=== PATIENT | male | born 1990 | race Caucasian/White ===

== ENCOUNTER 2025-03-08 18:52 | Emergency (ER) | payer OTHER, SELFPAY ==
[2025-03-08 18:58] VITALS: BP 105/54; PULSE 60; RESP 20; TEMP 35.4; O2SAT 98
--- NOTE | 2025-03-08 19:15 | W.ED.GENAD ---
Discharge Plan Disposition Patient Disposition: Home Discharge Details Clinical Impression: Acute thoracic back pain Primary Care Provider: [facility] ED Provider: Ashley Smith Home Meds and New Rx's Prescriptions: New methocarbamol 750 mg tablet 750 mg PO Q8H Qty: 10 0RF No Action fluoxetine 60 mg tablet 60 mg PO DAILY Discharge Instructions Instructions: Upper Back Pain (DC) Additional Instructions: Please call your primary care provider first thing Monday morning to schedule follow-up appointment. I recommend he continue using ibuprofen 600 mg every 8 hours, acetaminophen 650 mg every 6 hours, and lidocaine patches available [id number]. When you are not using lidocaine patches, I recommend heat and ice alternating every 15 to 20 minutes.. Use gentle stretching exercises. You may use Robaxin prescribed as needed, please note that this may make you sleepy, so do not operate any heavy machinery, drive, swim, or climb ladders while taking this. Return to emergency care if develop new extremity weakness/numbness, change in bowel or bladder function, difficulty breathing, or if you are very worried and need to be rechecked immediately Stand Alone Forms: Work Release Referrals: [facility] [Primary Care Provider, Medicine] Discharge Data Discharge Date/Time-TO BE ENTERED AT DEPARTURE: 03/08/25 21:06 HPI General Date/Time Provider Initiated Documentation: 03/08/25 18:59. HPI Narrative: Luis is a 34 year old male who presents to the emergency department for sudden onset of thoracic back pain. Sudden onset of back pain while bending over to lift a tube of blood that dropped on the floor. Denies associated extremity numbness/weakness, loss of bowel/bladder control, abdominal pain, chest pain, difficulty breathing/shortness of breath other than discomfort with deep inspiration attributed to back pain. Has not taken any pain relievers prior to arrival to ED. History of similar episodes of thoracic and lumbar back pain due to previous occupation as a [employer]. Has successfully used prednisone and Tylenol in the past, but says the prednisone disrupts sleep so he would like to avoid that at this time. Has history of PTSD, no history of gael's. Denies heart disease, lung disease, kidney disease, bleeding disorders, regular EtOH use, history of GI bleeds. He has a chiropractor he can follow-up with. PCP is at [facility]. Related Data Home Medications ?Medication ?Instructions ?Recorded ?Confirmed fluoxetine 60 mg tablet 60 mg PO DAILY 03/08/25 03/08/25 methocarbamol 750 mg tablet 750 mg PO Q8H #10 tabs 03/08/25 Previous Rx's ?Medication ?Instructions ?Recorded methocarbamol 750 mg tablet 750 mg PO Q8H #10 tabs 03/08/25 Allergies Allergy/AdvReac Type Severity Reaction Status Date / Time propranolol Allergy Intermediate Other (See Verified 03/08/25 19:03 Comment) General Stated Complaint: Nk/Back Pain ALONDRA: 4 Exam Narrative Exam Narrative: General Appearance: Normal. Patient is alert and oriented, no acute distress Vital signs: Within normal limits. Respiratory: Normal breath sounds, easy work of breathing, lung sounds clear bilaterally Cardiovascular: Normal heart sounds, regular rate and rhythm Gastrointestinal: No abdominal tenderness, abdomen is soft, nondistended Back, Musculoskeletal: Tenderness in thoracic spine along T7-T9, no step-offs or deformities, no point tenderness. No paraspinal tenderness. Extremities: 5/5 upper and lower extremity strength, sensation grossly intact. Skin: Warm and dry, no rash. Psychiatric: Normal. Course Vital Signs Vital signs: Vital Signs Pulse 60 03/08/25 18:58 Respiratory Rate 03/08/25 18:58 Blood Pressure 105/54 L 03/08/25 18:58 Pulse 60 03/08/25 18:58 Respiratory Rate 20 03/08/25 18:58 Blood Pressure 105/54 L 03/08/25 18:58 Blood Pressure Position Sitting 03/08/25 18:58 Oxygen Delivery Method Room Air 03/08/25 18:58 Oxygen Flow Rate 0 03/08/25 18:58 Medical Decision Making Initial Assessment: Thoracic back pain after bending over. No history of trauma, osteoporosis, or significant health issues. History and presentation most consistent with musculoskeletal back pain, no red flags concerning for spinal cord compression/neurovascular compromise, intrathoracic etiology, or significant trauma concerning for fracture ED Course: Lidocaine patch, Toradol, Tylenol administered. Pt reports good improvement of symptoms, can now take deep breaths without difficulty. Final Assessment: Thoracic back pain managed with lidocaine patch, Toradol, Tylenol. Muscle relaxers for home use. Prednisone withheld due to sleep impact. Clinical Impression: Thoracic back pain Disposition: Follow up with primary care physician early next week. Consult chiropractor as needed. Reviewed discharge instructions, including symptomatic management and red flags indicate need for return to emergency care. A limited number for robaxin tablets given for muscle relaxer. Pt voices agreement with plan of care Patient Education: Multimodal pain control approach discussed. Advised follow-up with primary care physician and chiropractor. Patient consented to the use of [facility] PFSH All Active Problems (Updated 03/08/25 @ 20:46 by Ashley Joseph) Acute thoracic back pain (Acute) Social History Smoking risk assessment performed?: No Drug use: Daily Substance use type: marijuana
[2025-03-08] MEDS: Ketorolac 30 MG/ML VIAL IM (19:31)
[2025-03-08] MEDS: Lidocaine 5% Patch 1 PATCH TP (19:31)
[2025-03-08] MEDS: Acetaminophen 500 MG TAB 1000 MG PO (19:31)
[2025-03-08] MEDS: Methocarbamol 750 MG TAB PO (21:01)
== END 2025-03-08 21:06 | disposition home or self-care (01) ==
PROVIDERS: Emergency Provider Nurse Practitioner Family; PCP Nurse Practitioner Family
DX: M54.6 Pain in thoracic spine (principal)
CPT/HCPCS: 99284; 99283; 96372; J1885